=== PATIENT | male | born 1995 | race Caucasian/White ===

== ENCOUNTER 2018-12-10 15:32 | Emergency (ER) | payer SELFPAY ==
[2018-12-10 15:48] VITALS: TEMP 97.5
[2018-12-10] MEDS ORDERED: SODIUM CHLORIDE 0.9% 1000ML 1,000 ML IVS ONE (16:31)
[2018-12-10 18:56] VITALS: BP 131/83; O2SAT 94
--- NOTE | 2018-12-10 18:58 | ED.PDOC ---
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 PT DENIES ABOVE AND STATES HE ONLY TOOK 1 PILL TODAY AND DID NOT SNORT ANY MEDICATION. HE DENIES HEARING ANY VOICES IN THE ER. Severity: moderate Improving Factors: nothing Worsening Factors: nothing Associated Symptoms: denies symptoms Allergies/Adverse Reactions: Allergies NO KNOWN ALLERGY Allergy (Verified 12/10/18 15:52) Home Medications: Ambulatory Orders Quetiapine Fumarate [Seroquel] 25 mg PO BID 12/10/18 hydrOXYzine HCl [Atarax] 25 mg PO TID PRN 12/10/18 Review of Systems - Review of Systems Constitutional: States: no symptoms reported EENTM: States: no symptoms reported Respiratory: States: no symptoms reported Cardiology: States: no symptoms reported Gastrointestinal/Abdominal: States: no symptoms reported Genitourinary: States: no symptoms reported Musculoskeletal: States: no symptoms reported Skin: States: no symptoms reported Neurological: States: no symptoms reported Endocrine: States: no symptoms reported Hematologic/Lymphatic: States: no symptoms reported All other Systems: Reviewed and Negative Past Medical History (General) - Patient Medical History Hx Stroke: No Hx Asthma: No Hx Cardiac Disorders: No Hx Congestive Heart Failure: No Hx Pacemaker: No Hx Diabetes: No Hx MRSA: No Surgical History: no surgical history Family Medical History - Family History Mother Family History: No Known Physical Exam - Physical Exam General Appearance: Alert, No apparent distress Eye Exam: bilateral normal Ears, Nose, Throat: hearing grossly normal, normal ENT inspection Neck: non-tender, full range of motion Respiratory: chest non-tender, lungs clear Cardiovascular/Chest: normal peripheral pulses, regular rate, rhythm Peripheral Pulses: radial,right: 2+, radial,left: 2+ Gastrointestinal/Abdominal: normal bowel sounds, non tender, soft Back Exam: normal inspection Extremity: normal range of motion, normal inspection Neurologic: geophysical manager II-XII nml as tested, no motor/sensory deficits, alert, normal mood/affect, oriented x 3, other - PSYCHIATRIC: NL MOOD AND AFFECT. MAKES GOOD EYE CONTACT. NL, CLEAR SPEECH. NL MENTATION AND CONVERSATION. INTERACTS WELL AND APPROPRIATELY. DENIES SI OR HI. Skin Exam: normal color, warm/dry Lymphatic: no adenopathy Progress - Progress Progress: 12/10/18 18:54 PT DENIES ANY SI OR HI. HE STATES HE DID NOT INTEND ANY SELF HARM TODAY. PT DENIES SNORTING THE ATARAX AND STATES HE JUST TOOK 1 PILL TODAY. HE SEES [facility] ON A WEEKLY BASIS. WE CALLED [facility] FOR POTENTIAL ATARAX OVERMEDICATION. THEY SUGGESTED EKG AND IVF BOLUS. CBC, CMP, EKG NO CONCERNS. UDS SHOWS CANNABINOIDS. WE TALKED WITH [facility]. THEY INFORMED US HALLUCINATIONS/HEARING VOICES ARE HIS BASELINE AND NOT NEW FOR HIM. THEY FELT SINCE PT HAS NO SUICIDAL OR HOMICIDAL IDEATIONS, HE IS SAFE FOR DC TO HOME WITH CLOSE F/U WITH [facility] AND I AGREE. PT IS LUCID AND IN A NORMAL STATE OF MIND PER MY CONVERSATION WITH HIM AND INTENDS NO HARM TO SELF OR OTHERS. 12/10/18 19:00 12/10/18 19:00 Departure - Departure Clinical Impression: Cannabis abuse Medication overdose Qualifiers: Encounter type: initial encounter Injury intent: undetermined intent Qualified Code(s): T50.904A - Poisoning by unspecified drugs, medicaments and biological substances, undetermined, initial encounter Disposition: Discharge to Home or Self Care Condition: Good Departure Forms: ED Discharge - Pt. Copy, Patient Portal Self Enrollment Instructions: Chemical Ingestion (DC) Diet: resume usual diet Activity: increase activity as tolerated Referrals: PHOEBE BRISENO [Primary Care Provider] - 1-2 Weeks Home Medications: Ambulatory Orders Quetiapine Fumarate [Seroquel] 25 mg PO BID 12/10/18 hydrOXYzine HCl [Atarax] 25 mg PO TID PRN 12/10/18 Additional Instructions: Please keep your regular appointment with [facility].
== END 2018-12-10 19:15 | disposition home or self-care (01) ==
LOC: ER 15:32
DX: T50.904A Poisoning by unspecified drugs, medicaments and biological substances, undetermined, initial encounter (principal); F12.10 Cannabis abuse, uncomplicated; R44.0 Auditory hallucinations; Z79.899 Other long term (current) drug therapy
CPT/HCPCS: 36415; 80053; 80307; 80329; 85025; 93005; J7030